=== PATIENT | female | born 1970 | race Hispanic/Latino ===

== ENCOUNTER → 2018-06-15 | Outpatient (CLI) | payer OTHER ==
--- NOTE | 2018-06-20 08:28 | Diagnostic Imaging Report ---
#[id number] - MGSCRBIL #BILATERAL DIGITAL SCREENING MAMMOGRAM WITH CAD: 06/15/2018 CLINICAL: Routine screening. Comparison is made to exams dated: 08/03/2016 mammogram and 06/29/2012 mammogram - [facility]. Current study contains 4 films. The tissue of both breasts is extremely dense, which lowers the sensitivity of mammography. Current study was also evaluated with a Computer Aided Detection (CAD) system. There are benign lymph nodes in both breasts. There also is a benign calcification in the left breast. No significant masses, calcifications, or other findings are seen in either breast. There has been no significant interval change. IMPRESSION: BENIGN There is no mammographic evidence of malignancy. A 1 year screening mammogram is recommended. The patient will be notified by letter of the results. Cricket gutiérrez/rashaad:06/19/2018 15:27:09 [employer] Operator: Ana LUONG(Derek)(M), [facility] letter sent: Compared to Prior B9 Mammogram BI-RADS: 2 Benign
== END ==
LOC: MAMMO 15:12
PROVIDERS: ATTEND Internal Medicine
DX: Z12.31 Encounter for screening mammogram for malignant neoplasm of breast (principal)
CPT/HCPCS: 77067

== ENCOUNTER → 2018-08-02 | Outpatient (CLI) | payer OTHER ==
--- NOTE | 2018-08-02 17:14 | Diagnostic Imaging Report ---
PROCEDURE:US BREAST COMPLETE LEFT COMPARISON:None. INDICATIONS:Mastodynia, palpable area FINDINGS:Real-time evaluation of the entire left breast was accomplished with scanning in all 4 quadrants, retro-areolar region and the left axilla. There are multiple cysts present. -At 12:00 approximately 1-2 cm from the nipple is an ill-defined hypoechoic region anterior to a complex cyst with a cyst measuring 1.3 x 0.7 x 1.0 cm. -At 1:00 1 cm from the nipple there is a simple cyst measuring 3 x 3 x 4 mm. -At 2:00 1 cm from the nipple there is a 7 x 3 x 5 mm benign cyst. -At 3:00 2 cm from the nipple there is a 5 x 3 x 4 mm benign cyst. CONCLUSION:Multiple benign-appearing cysts. Cricket Rodas D.O. Dictated by: Cricket Rodas D.O. on 08/02/2018 at 17:23 Electronically approved by: Cricket Rodas D.O. on 08/02/2018 at 17:23
== END ==
LOC: US 15:52
PROVIDERS: ATTEND Internal Medicine
DX: N64.4 Mastodynia (principal)

== ENCOUNTER → 2018-11-10 | Day surgery (SDC) | payer OTHER ==
[2018-11-03 12:35] LABS: BASOPHILS % 0.3 % (0.0-1.0); EOSINOPHILS # (AUTO) 0.1 (0.0-0.4); EOSINOPHILS % 1.3 % (0.0-6.0); HEMATOCRIT 42.5 % (34.2-44.1); HEMOGLOBIN 13.5 g/dL (12.0-16.0); LYMPHOCYTES # (AUTO) 1.6 (1.0-3.2); LYMPHOCYTES % 20.7 % (18.0-39.1); MEAN CORPUSCULAR HEMOGLOBIN 28.5 pg (28-32); MEAN CORPUSCULAR HGB CONC 31.8 g/dL (31-35); MEAN CORPUSCULAR VOLUME 89.7 fL (81-99); MONOCYTES # (AUTO) 0.4 (0.2-0.8); MONOCYTES % 5.6 % (4.4-11.3); NEUTROPHILS # (AUTO) 5.5 (2.1-6.9); NEUTROPHILS % 71.7 % (38.7-80.0); PLATELET COUNT 238 x10e3/uL (140-360); RED BLOOD COUNT 4.74 x10e6/uL (3.6-5.1); RED CELL DISTRIBUTION WIDTH 13.6 % (11.7-14.4)
[2018-11-03 13:11] LABS: ANION GAP 14.2 mmol/L (8-16); BLOOD UREA NITROGEN 15 mg/dL (7-26); BUN/CREATININE RATIO 19 (6-25); CALCIUM 9.4 mg/dL (8.4-10.2); CARBON DIOXIDE 23 mmol/L (22-29); CHLORIDE 102 mmol/L (98-107); CREATININE, SERUM 0.79 mg/dL (0.57-1.11); EST GLOMERULAR FILTRATION RATE > 60 ML/MIN (60-); GLUCOSE 222 mg/dL (74-118); POTASSIUM 4.2 mmol/L (3.5-5.1); SODIUM 135 mmol/L (136-145)
[~2018-11-10] MED LIST: ACETAMINOPHEN 1000 MG/100 ML IV ONE; DEXAMETHASONE SOD PHOS INJ 4 MG/ML VIAL ONE; FENTANYL CITRATE/PF 100MCG/2 ML INJ ONE; GLYBURIDE-METF1 EAC1 PO; GLYXAMBI PO; KETOROLAC TROMETHAMINE 30 MG/ML VIAL ONE; LIDOCAINE HCL 2% LOCAL INJ 5 ML SDV VIAL INJ ONE; LOSARTAN POTASS25 MG PO; METOCLOPRAMIDE HCL 10 MG/2ML VIAL ONE; MIDAZOLAM HCL 2 MG/2 ML VIAL ONE; ONDANSETRON HCL INJ 2MG/ML 2ML 2 MG/ML VIAL ONE; PIOGLITAZONE HC45 MG PO; PRAVASTATIN SOD20 MG PO; PROPOFOL IV EMULSION 10 MG/ML 20 ML VIAL ONE; SEVOFLURANE INHAL SOLN 250 ML PEN BTL ONE
--- OUTSIDE RECORDS SUMMARY | 2018-11-10 05:37 | XMS REPORT ---
Author [facility] Address Unknown Phone Unavailable Care Team Providers Care Naturopathic Oncology Provider Name Role Phone CARDENASAshok Unavailable Unavailable Problems This patient has no known problems. Allergies, Adverse Reactions, Alerts This patient has no known allergies or adverse reactions. Medications This patient has no known medications. Results Test Description Test Time Test Comments Text Results Atomic Results Result Comments US BREAST COMPLETE LEFT 2018-08-02 17:23:00 [place] [address] Patient Name: KASEY BERRY MR #: [id number] : 1970 Age/Sex: 47/F Req #: [id number] [facility] Physician: Ordered by: JAYNE CARDENAS MD Report #: [id number] Location: US Room/Bed: Procedure: [id number] US/US BREAST COMPLETE LEFT Exam Date: Exam Time: REPORT STATUS: Signed PROCEDURE: US BREAST COMPLETE LEFT COMPARISON: None. INDICATIONS: Mastodynia, palpable area FINDINGS: Real-time evaluation of the entire left breast was accomplished with scanning in all 4 quadrants, retro-areolar region and the left axilla. There are multiple cysts present. -At 12:00 approximately 1-2 cm from the nipple is an ill- defined hypoechoic region anterior to a complex cyst with a cyst measuring 1.3 x 0.7 x 1.0 cm. -At 1:00 1 cm from the nipple there is a simple cyst measuring 3 x 3 x 4 mm. -At 2:00 1 cm from the nipple there is a 7 x 3 x 5 mm benign cyst. -At 3:00 2 cm from the nipple there is a 5 x 3 x 4 mm benign cyst. CONCLUSION: Multiple benign-appearing cysts. Marybeth Rodas D.O. Dictated by: Marybeth Rodas D.O. on 08/02/2018 at 17:23 Electronically approved by: Marybeth Rodas D.O. on 08/02/2018 at 17:23 Dictated By: MARYBETH RODAS DO 22 Transcribed By: NIKA on 08/02/181722 COPY TO: JAYNE CARDENAS MD MAMMOGRAPHY DIGITAL SCR BILAT 2018-06-15 15:59:00 [place] [address] Patient Name: KASEY BRERY MR #: [id number] : 1970 Age/Sex: 47/F Req #: [id number] [facility] Physician: Ordered by: JAYNE CARDENAS MD Report #: [id number] Location: MAMMO Room/Bed: Procedure: [id number] MG/MAMMOGRAPHY DIGITAL SCR BILAT Exam Date: 06/15/18 Exam Time: 1522 REPORT STATUS: Signed #[id number] - MGSCRBIL #BILATERAL DIGITAL SCREENING MAMMOGRAM WITH CAD: 06/15/2018 CLINICAL: Routine screening. Comparison is made to exams dated: 08/03/2016 mammogram and 06/29/2012 mammogram - [facility]. Current study contains 4 films. The tissue of both breasts is extremely dense, which lowers the sensitivity of mammography. Current study was also evaluated with a Computer Aided Detection (CAD) system. There are benign lymph nodes in both breasts. There also is a benign calcification in the left breast. No significant masses, calcifications, or other findings are seen in either breast. There has been no significant interval change. IMPRESSION: BENIGN There is no mammographic evidence of malignancy. A 1 year screening mammogram is recommended. The patient will be notified by letter of the results. Marybeth gutiérrez/lynda:06/19/2018 15:27:09 [employer] Specialist: Ana LUONG(R)(M), [facility] sent: Compared to Prior B9 Mammogram BI-RADS: 2 Benign Dictated By: MARYBETH RODAS DO 1527 Transcribed By: LYNDA on 06/19/18 1527 COPY TO: JAYNE CARDENAS MD
[2018-11-10 09:45] VITALS: BP 109/59
--- NOTE | 2018-11-10 14:50 | Operative Report ---
DATE OF PROCEDURE: 11/10/2018 SURGEON: Gumaro Miranda MD PREOPERATIVE DIAGNOSIS: Dominant area, left breast. POSTOPERATIVE DIAGNOSIS: Dominant area, left breast. PROCEDURE PERFORMED: Left partial mastectomy. ANESTHESIA: General. ESTIMATED BLOOD LOSS: Minimal. DRAINS: None. COMPLICATION: None. INDICATION AND FINDINGS: The patient is a 48-year-old female, who was admitted for biopsy of a dominant area of the left breast located around 12 o'clock, about 2 to 3 cm superior to the nipple. She was found to have, on ultrasound, a complex area in that location, which was aspirated with resolution. On physical examination, it was found to have dominant area located in that location. Because of this, partial mastectomy was then performed, the specimen was labeled two strings for the superior margin, one nylon string for the inferior margin. No gross identifiable mass was found. DESCRIPTION OF THE PROCEDURE: With the patient lying on the operating table in the supine position and after administration of general anesthesia, she was prepped and draped for left partial mastectomy. A transverse incision was made slightly curved inferiorly across the palpable area located between the 12 and 1 o'clock of the left breast between 2 and 3 cm from the nipple. Dissection was carried down through skin, subcutaneous tissue, and then creating the dissection in a pyramidal fashion widened towards the periphery of the incision, that area was excised. Bleeding points were cauterized, then the wound was closed in two layers using 2-0 chromic for the breast tissue and 4-0 Vicryl for subcuticular plane and the skin was closed using simple 4-0 silk suture. Sterile dressing was applied. The patient tolerated the procedure well and taken to the recovery room in stable condition. Gumaro Miranda MD PJR/MODL /[id number]
== END | disposition home or self-care (01) ==
LOC: OR 05:36
PROVIDERS: ATTEND Surgery
DX: N60.22 Fibroadenosis of left breast (principal); E11.9 Type 2 diabetes mellitus without complications; Z01.810 Encounter for preprocedural cardiovascular examination; Z01.812 Encounter for preprocedural laboratory examination; Z79.84 Long term (current) use of oral hypoglycemic drugs; Z87.891 Personal history of nicotine dependence
CPT/HCPCS: 19301; 36415 ×2; 80048; 81025; 82948; 85025; 88307; 93005; J0131; J1100; J1885; J2001; J2250; J2405; J2704; J2765; 88305